=== PATIENT | male | born 1990 ===

== ENCOUNTER 2016-12-07 23:47 | Emergency (ER) | payer SELFPAY ==
[2016-12-08 00:02] VITALS: RESP 18; TEMP 98.2; O2SAT 98
[2016-12-08] MEDS ORDERED: Bacitracin 500 Units/gm Oint Foilpak UD TOP ONE (00:27)
[2016-12-08] MEDS ORDERED: Naproxen 550 mg Tab PO STA (00:33)
[2016-12-08] MEDS ORDERED: Naproxen 550 mg Tab PO ONE (00:35)
[2016-12-08] MEDS ORDERED: Bacitracin 500 Units/gm Oint Foilpak UD ONE (00:56)
--- NOTE | 2016-12-08 01:15 | C.PDOC ---
History Of Present Illness 26 yo male c/o right buttock pain s/p fall at 730 pm. 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 Pt notes he feel on his right buttock, got up, drove the truck back and went home. No head trauma. No change in sensation. No incontinence. (+) able to ambulate. Did not take medication at home. - HPI Time Seen by Provider: 12/07/16 23:54 Chief Complaint (Nursing): Trauma History Per: Patient History/Exam Limitations: no limitations Onset/Duration Of Symptoms: Hrs Past Medical History Vital Signs: Last Vital Signs Temp 98.2 F 12/08/16 00:01 Pulse 72 12/08/16 01:19 Resp 18 12/08/16 01:19 BP 118/72 12/08/16 01:19 Pulse Ox 98 12/08/16 01:19 Family History: States: Unknown Family Hx - Social History Hx Alcohol Use: Yes Hx Substance Use: No Review Of Systems Except As Marked, All Systems Reviewed And Found Negative. Physical Exam - Physical Exam Appears: Well, Non-toxic, No Acute Distress Skin: Warm, Dry, Other ((+) abrasion to left wrist) Head: Atraumatic, Normacephalic Eye(s): bilateral: Normal Inspection, PERRL, EOMI Nose: Normal Oral Mucosa: Moist Neck: Normal, Normal ROM, Supple Chest: Symmetrical Cardiovascular: Rhythm Regular Respiratory: Normal Breath Sounds, No Accessory Muscle Use Gastrointestinal/Abdominal: Normal Exam, Soft, No Tenderness Back: Normal Inspection Extremity: Normal ROM, Tenderness ((+) right buttock . No hip or back tenderness. no Wrsit tenderness. FROM .), No Swelling Extremity: Bilateral: Normal Color And Temperature, Normal ROM Pulses: Left Radial: Normal, Right Radial: Normal, Left Dorsalis Pedis: Normal, Right Dorsalis Pedis: Normal Neurological/Psych: Oriented x3, Normal Speech, Normal Motor, Normal Sensation Gait: Steady ED Course And Treatment O2 Sat by Pulse Oximetry: 98 - Other Rad Hip XR X-Ray: Interpreted by Me, Viewed By Me Interpretation: No fx or dislocation Progress Note: Offered wrist XR, pt refused. Instructed RICE and outpt follow up in 1-2 days. Disposition - Disposition Disposition: HOME/ ROUTINE Disposition Time: 01:14 Condition: STABLE Additional Instructions: Rest and ice the area. follow up with PMD in 1-2 days. return to ER if symptoms persist or worsen. Prescriptions: Naproxen [Naprosyn] 1 tab PO BID PRN #20 tab PRN Reason: Pain Instructions: Contusion in Adults (ED) Forms: Work Excuse - Clinical Impression Clinical Impression: Contusion of buttock, Abrasion of wrist
[2016-12-08 01:19] VITALS: BP 118/72; PULSE 72
--- NOTE | 2016-12-08 13:48 | RAD ---
Pelvis and right hip two views History: Trauma. Comparison: None available. Findings: No evidence of acute displaced fracture or dislocation of the right hip. Remainder of the visualized bony pelvis appears grossly preserved. Small bone island in the left proximal femur. Punctate calcified phlebolith in the right hemipelvis. Fecal retention in the colon. Impression: Negative acute. If pain persists, consider MRI.
== END 2016-12-08 01:19 | disposition home or self-care (01) ==
LOC: C.ER 23:47
DX: S30.0XXA Contusion of lower back and pelvis, initial encounter (principal); S60.812A Abrasion of left wrist, initial encounter; W19.XXXA Unspecified fall, initial encounter; Y92.9 Unspecified place or not applicable; Y99.0 Civilian activity done for income or pay